=== PATIENT | female | born 1935 | race Caucasian/White ===

== ENCOUNTER → 2021-07-16 12:08 | Outpatient (CLI) | payer MEDICARE, SELFPAY ==
--- NOTE | ~2021-07-16 | MR_ITS ---
EXAMINATION: MR ankle RT wo con, MR foot RT wo con DATE: 07/16/2021 13:22 INDICATION: Right posterior tibial tendinitis with chronic medial and plantar right ankle pain radiat ing into the toes. TECHNIQUE: 1. Magnetic resonance imaging (MRI) of the right ankle was performed without intravenous contrast. Se quences included axial fluid sensitive FSE STIR and sagittal, coronal, and axial PD-weighted FSE and PD-weighted FS FSE . 2. MRI of the right foot was performed without intravenous contrast. Sequences included axial and cor onal PD-weighted FS FSE, sagittal and coronal T1-weighted FSE, sagittal fluid sensitive FSE STIR and axial PD-weighted FSE. COMPARISON: None. FINDINGS: Line evaluation mildly limited by some degree of motion artifact or blurring on the majorit y of the sequences. Medial ankle ligaments: There is heterotopic ossification along the deep deltoid ligament which appears thickened with loss o f the normal well-defined striated pattern. There is also thickening of the superficial deltoid ligam ent, all findings consistent with likely scarring related to chronic sprain. The spring ligament comp monica appears normal. Lateral ankle ligaments: The anterior and posterior inferior tibiofibular ligaments are normal. The anterior talofibular, calc aneofibular and posterior talofibular ligaments are normal. Tendons: Achilles tendon is normal. The peroneus longus and brevis tendons are normal. The tibialis anterior a nd extensor hallucis longus and extensor digitorum longus tendons are normal. The tibialis posterior, flexor digitorum longus and flexor hallucis longus tendons are normal. Plantar fascia: Moderate plantar calcaneal spur at the calcaneal origin of the otherwise normal plantar aponeurosis. Bones: Hallux valgus with moderate osteoarthritis at the first metatarsophalangeal joint. Bone alignment is otherwise normal. No fracture. There is mild osteoarthritis at the ankle with mild subarticular edema along the posterior lateral rim of the talar dome. Additional mild osteoarthritis at many of the tar mylene metatarsal and interphalangeal joints. Marrow signal is otherwise normal throughout. Fluid: Physiologic amount of fluid in the joint spaces. No joint effusions, tenosynovitis, bursitis or other abnormal fluid collections. Other: Postoperative changes at the posterior medial aspect of the ankle with appearance suggesting decompre ssion of the tarsal tunnel. Lisfranc ligament complex is normal. Intrinsic musculature of the foot is unremarkable. IMPRESSION: 1. Chronic medial ankle sprain with scarring of the deep and superficial deltoid ligament, the former loss with heterotopic ossification. 2. Hallux valgus with moderate osteoarthritis at the first metatarsophalangeal joint. 3. Additional mild polyarticular osteoarthritis at the ankle and multiple additional joints in the fo ot. 4. Postoperative changes at the posterior medial ankle suggesting partial tunnel decompression. 5. Evaluation mildly limited by motion artifact or blurring on multiple sequences. Reviewed, dictated and finalized at location A. IMPRESSION: 1. Chronic medial ankle sprain with scarring of the deep and superficial deltoi d ligament, the former loss with heterotopic ossification. 2. Hallux valgus with moderate osteoarthritis at the first metatarsophalangeal joint. 3. Additional mild polyarticular osteoarthritis at the ankle and multiple addit ional joints in the foot. 4. Postoperative changes at the posterior medial ankle suggesting partial tunne l decompression. 5. Evaluation mildly limited by motion artifact or blurring on multiple sequenc es.
== END ==
PROVIDERS: PCP Internal Medicine; Visit Provider Podiatrist Foot & Ankle Surgery
DX: M76.821 Posterior tibial tendinitis, right leg (principal); S93.401A Sprain of unspecified ligament of right ankle, initial encounter; X58.XXXA Exposure to other specified factors, initial encounter; M20.11 Hallux valgus (acquired), right foot; M19.071 Primary osteoarthritis, right ankle and foot
CPT/HCPCS: 73718; 73721